=== PATIENT | female | born 1935 | race Caucasian/White ===

== ENCOUNTER 2018-02-15 06:31 | Observation (INO) | payer MEDICARE, OTHER ==
[2018-02-15] MEDS ORDERED: IODIXANOL 320 MG/ML 100 ML VIAL. (07:07)
[2018-02-15] MEDS ORDERED: LIDOCAINE 2% 20 ML VIAL. (07:07)
[2018-02-15 07:24] LABS: HEMATOCRIT 40.2 % (36.0-47.0); HEMOGLOBIN 13.6 g/dL (12.0-15.5); MEAN CORPUSCULAR HEMOGLOBIN 30 pg (25-35); MEAN CORPUSCULAR HGB CONC 34 g/dL (31-37); MEAN CORPUSCULAR VOLUME 89 fL (79-100); PLATELET COUNT 268 x10^3/uL (140-400); RED BLOOD COUNT 4.51 x10^6/uL (3.50-5.40); RED CELL DISTRIBUTION WIDTH 14.7 % (11.5-14.5); WHITE BLOOD COUNT 6.3 x10^3/uL (4.0-11.0)
[2018-02-15 07:32] LABS: ANION GAP 9 (6-14); BLOOD UREA NITROGEN 15 mg/dL (7-20); CALCIUM 9.4 mg/dL (8.5-10.1); CARBON DIOXIDE 27 mmol/L (21-32); CHLORIDE 94 mmol/L (98-107); CREATININE 1.3 mg/dL (0.6-1.0); GFR 39.2; GLUCOSE 119 mg/dL (70-99); POTASSIUM 3.7 mmol/L (3.5-5.1); SODIUM 130 mmol/L (136-145)
[2018-02-15] MEDS ORDERED: fentaNYL PF VIAL 100 MCG/2 ML VIAL (07:42)
[2018-02-15] MEDS ORDERED: MIDAZOLAM HCL/PF 2 MG/2 ML VIAL. (07:42)
[2018-02-15] MEDS ORDERED: HEPARIN for IV BOLUS 10,000 UNIT/10 ML VIAL. ×2 (07:45→08:53)
[2018-02-15 07:51] LABS: INR 0.9 (0.8-1.1); PROTHROMBIN TIME PATIENT 11.5 SEC (11.7-14.0)
[2018-02-15] MEDS: IODIXANOL 320 MG/ML 100 ML VIAL. IART (08:00)
[2018-02-15] MEDS: LIDOCAINE 2% 20 ML VIAL. IJ (08:00)
[2018-02-15] MEDS ORDERED: CONTRAST GIVEN. MC (08:00)
[2018-02-15] MEDS: fentaNYL PF VIAL 100 MCG/2 ML VIAL IV (08:00)
[2018-02-15] MEDS: MIDAZOLAM HCL/PF 2 MG/2 ML VIAL. IV (08:00)
[2018-02-15] MEDS: NITROGLYCERIN 200 MCG/2 ML SYRINGE FOR CATH/VASC LAB. IART (09:15)
[2018-02-15] MEDS: dilTIAZem INJ 10 MG, NITROGLYCERIN 4MG SYRINGE 4 MG, HEPARIN SODIUM 10,000 UNIT, VIPERS... INT CAT (09:15)
[2018-02-15] MEDS: HEPARIN for IV BOLUS 10,000 UNIT/10 ML VIAL. IV (09:15)
[2018-02-15] MEDS ORDERED: ACETAMINOPHEN 325 MG TABLET. PO ×2 (10:15→12:45)
[2018-02-15] MEDS ORDERED: fentaNYL PF VIAL 100 MCG/2 ML VIAL IV (10:45)
[2018-02-15] MEDS ORDERED: MIDAZOLAM HCL/PF 2 MG/2 ML VIAL. IV (10:45)
[2018-02-15] MEDS ORDERED: oxyCODONE/APAP 5/325 1 TAB TABLET PO (12:45)
[2018-02-15] MEDS: IV 1/2 NORMAL SALINE 1,000 ML IV ×2 (13:15→21:36)
[2018-02-15] MEDS: hydrALAZINE 20 MG/ML VIAL. IVP (13:17)
[2018-02-15] MEDS: ALPRAZolam 0.5 MG TABLET PO (21:28)
[2018-02-15] MEDS: AMITRIPTYLINE HCL 25 MG TABLET. PO ×2 (21:28→21:33)
[2018-02-16 05:18] LABS: ANION GAP 7 (6-14); BLOOD UREA NITROGEN 10 mg/dL (7-20); CALCIUM 8.1 mg/dL (8.5-10.1); CARBON DIOXIDE 27 mmol/L (21-32); CHLORIDE 96 mmol/L (98-107); CREATININE 0.9 mg/dL (0.6-1.0); GFR 59.9; GLUCOSE 116 mg/dL (70-99); SODIUM 130 mmol/L (136-145)
[2018-02-16 05:28] LABS: POTASSIUM 2.9 mmol/L (3.5-5.1)
[2018-02-16] MEDS: LEVOTHYROXINE 75 MCG TABLET PO (05:55)
[2018-02-16] MEDS: POTASSIUM CHLORIDE 20 MEQ TABLET.ER. PO ×2 (06:09→08:44)
[2018-02-16] MEDS: amLODIPine BESYLATE 5 MG TABLET PO (08:42)
[2018-02-16] MEDS: AMITRIPTYLINE HCL 25 MG TABLET. PO (08:42)
[2018-02-16] MEDS: CETIRIZINE HCL 10 MG TABLET. PO ×2 (08:42→08:52)
[2018-02-16] MEDS: POTASSIUM CHLORIDE 10 MEQ TABLET.ER. PO (08:43)
[2018-02-16] MEDS: TRIAMTERENE/HCTZ 37.5/25MG TABLET. PO (08:43)
[2018-02-16] MEDS: ALPRAZolam 0.5 MG TABLET PO (08:45)
[2018-02-16 09:36] LABS: MAGNESIUM 1.5 mg/dL (1.8-2.4)
[2018-02-16] MEDS: MAGNESIUM SULFATE 2GM 50 ML IV (11:33)
== END 2018-02-16 14:30 | disposition other institution (70) ==
LOC: CCL 06:31 → 2 NORTH 09:22
DX: I73.9 Peripheral vascular disease, unspecified (principal); E03.9 Hypothyroidism, unspecified; E87.6 Hypokalemia; F32.9 Major depressive disorder, single episode, unspecified; F41.9 Anxiety disorder, unspecified; Z88.2 Allergy status to sulfonamides
CPT/HCPCS: 36415; 37225; 80048; 83735; 85027; 85610; 93306; 96365; 96366; 96367; 96375; 99152; 99153; C1724; C1769; C1771; C1885; C1892; G0269; G0378; G0379; J0360; J1644; J2001; J2250; J3010; J3475; J3490; J7030

== ENCOUNTER → 2019-02-23 | Outpatient (CLI) | payer MEDICARE ==
[2018-03-02 10:45] VITALS: BP 147/72
[~2019-02-23] MED LIST: ALPR0.254 PO; ALPR0.5T6 PO; AMIT25TA PO; AMLO5TAB4 PO; CETI10TA16 PO; CETI10TA22 PO; DIPH25CA58 PO; FLUO40CR TP; LEVO75TA5 PO; MULT-245 PO; OMEG1CAP6 PO; PERP4TAB6 PO; POTA10TA12 PO; TRIA1TAB5 PO; VITA100020 PO
--- NOTE | 2019-02-23 11:54 | CARD ---
MR#: [id number] Date of Study: 02/23/2019 Ordering Physician: TAYLOR GONZALEZ, Referring Physician: TAYLOR GONZALEZ Tech: Karen Luna RDCS APPROVED REPORT EXAM: Two-dimensional and M-mode echocardiogram with Doppler and color Doppler. Other Information Quality : GoodHR: 79bpm Rhythm : NSR INDICATION Cardiomyopathy 2D DIMENSIONS RVDd2.2 (2.9-3.5cm)Left Atrium(2D)2.7 (1.6-4.0cm) IVSd1.2 (0.7-1.1cm)Aortic Root(2D)2.4 (2.0-3.7cm) LVDd3.2 (3.9-5.9cm)LVOT Diameter1.8 (1.8-2.4cm) PWd0.9 (0.7-1.1cm)LVDs2.4 (2.5-4.0cm) FS (%) 24.8 %SV20.2 ml M-Mode DIMENSIONS Left Atrium(MM)2.58 (2.5-4.0cm)Aortic Root2.76 (2.2-3.7cm) Aortic Valve AoV Peak Ky.152.5cm/sAoV VTI32.6cm AO Peak GR.9.3mmHgLVOT Peak Ky.123.9cm/s AO Mean GR.5mmHgAVA (VMAX)2.04cm2 NICOLASA (VTI)2.00cm2 Mitral Valve MV E Nbydliko05.0cm/sMV DECEL KNAH437lp MV A Nkvghkki236.9cm/sE/A Ratio0.6 Pulmonary Valve PV Peak Kbqkeofr79.5cm/s Tricuspid Valve TR P. Ctybncxh002ma/sRAP [id number] TR Peak Gr.72aeOuVIKJ40jiEt Pulmonary Vein S1 Cydqdsvl05.0cm/sD2 Mryrbcmj13.8cm/s PVa cuflzqpz71rasr LEFT VENTRICLE The left ventricle is normal size. Mild proximal septal thickening is noted. Left ventricle systolic function is normal. The Ejection Fraction is 50-55%. There is normal LV segmental wall motion. Transm itral Doppler flow pattern is Grade I-abnormal relaxation pattern. RIGHT VENTRICLE The right ventricle is normal size. There is normal right ventricular wall thickness. The right ventr icular systolic function is normal. ATRIA The left atrium size is normal. The right atrium size is normal. The interatrial septum is intact wit h no evidence for an atrial septal defect or patent foramen ovale as noted on 2-D or Doppler imaging. AORTIC VALVE The aortic valve is mildly calcified. The aortic valve is trileaflet. Doppler and Color Flow revealed no significant aortic regurgitation. There is no significant aortic valvular stenosis. MITRAL VALVE Mitral annular calcification is mild. There is no evidence of mitral valve prolapse. There is no mitr al valve stenosis. Doppler and Color-flow revealed mild mitral regurgitation. TRICUSPID VALVE The tricuspid valve is normal in structure and function. Doppler and Color Flow revealed trace tricus pid regurgitation. The PA pressure was estimated at 25 mmHg. There is no tricuspid valve prolapse or vegetation. There is no tricuspid valve stenosis. PULMONIC VALVE The pulmonary valve is normal in structure and function. Doppler and Color Flow revealed trace pulmon ic valvular regurgitation. There is no pulmonic valvular stenosis. GREAT VESSELS The aortic root is normal in size. The ascending aorta is normal in size. The IVC is normal in size a nd collapses >50% with inspiration. PERICARDIAL EFFUSION There is no evidence of significant pericardial effusion. Critical Notification Critical Value: No <Conclusion> The left ventricle is normal size. Left ventricle systolic function is normal. The Ejection Fraction is 50-55%. Mild proximal septal thickening is noted. There is no significant aortic valvular stenosis. Doppler and Color Flow revealed no significant aortic regurgitation. Doppler and Color-flow revealed mild mitral regurgitation. Doppler and Color Flow revealed trace tricuspid regurgitation. The PA pressure was estimated at 25 mmHg. Signed by : Brennen Armstrong MD Electronically Approved : 02/23/2019 11:53:50
--- NOTE | 2019-02-23 14:38 | RAD ---
DOPPLER CAROTID BILAT Clinical Indication: Peripheral arterial disease.. Procedure: Pulsed wave and color-flow duplex imaging was utilized to evaluate the extracranial carotid arteries. Comparison: None. Findings: RIGHT SIDE: Mild atherosclerotic plaque on lee-scale images. Distal CCA peak systolic velocity 56 cm/sec. ICA peak systolic velocity 110 cm/sec. The right ICA/CCA ratio is 2.0. Flow within the right vertebral artery and right ECA is directed antegrade. LEFT SIDE: Mild atherosclerotic plaque on lee-scale images. Distal CCA peak systolic velocity 80 cm/sec. ICA peak systolic velocity 118 cm/sec. The left ICA/CCA ratio is 1.5. Flow within the left vertebral artery and left ECA is directed antegrade. Carotid legend: CCA = common carotid artery ICA = internal carotid artery ECA = external carotid artery IMPRESSION: Less than 50 percent stenosis bilaterally. Electronically signed by: Sheldon Shabazz DO (02/23/2019 2:34 PM) [facility]
--- NOTE | 2019-02-23 14:43 | RAD ---
Indication: Peripheral arterial disease. TECHNIQUE: Grayscale, color Doppler and spectral waveform images of the bilateral lower extremity arteries COMPARISON: None FINDINGS: Right side: Biphasic waveforms in the [employer] with velocity of 215 cm/s suggesting mild stenosis. Biphasic waveforms in the profunda femoris artery with velocity of 124 cm/s. Biphasic waveform in the proximal SFA with velocity of 149 cm/s. Biphasic waveforms in the mid SFA with velocity of 90 cm/s. Biphasic waveforms in the distal SFA with velocity of 61 cm/s. Biphasic waveforms in the popliteal artery with velocity of 77 cm/s. Biphasic waveforms in the distal posterior tibial artery with velocity of 35 cm/s. Biphasic waveforms in the peroneal artery with velocity of 42 cm/s. Biphasic waveforms in the anterior tibial artery with velocity of 50 cm/s. Biphasic waveforms in the dorsalis pedis artery with velocity of 59 cm/s. Left side: Biphasic waveforms in the [employer] with velocity of 208 cm/s suggesting mild stenosis. Biphasic waveforms in the profunda femoris artery with velocity of 98 cm/s. Biphasic waveform in the proximal SFA with velocity of 164 cm/s. Biphasic waveforms in the mid SFA with velocity of 78 cm/s. Biphasic waveforms in the distal SFA with velocity of 84 cm/s. Biphasic waveforms in the popliteal artery with velocity of 48 cm/s. Biphasic waveforms in the distal posterior tibial artery with velocity of 65 cm/s. Biphasic waveforms in the peroneal artery with velocity of 50 cm/s. Biphasic waveforms in the anterior tibial artery with velocity of 32 cm/s. Biphasic waveforms in the dorsalis pedis artery with velocity of 30 cm/s. IMPRESSION: Moderate diffuse bilateral atherosclerotic disease in the lower extremity arteries without significantly elevated velocity to suggest focal stenosis. Electronically signed by: Sheldon Shabazz DO (02/23/2019 2:41 PM) [facility]
== END | disposition home or self-care (01) ==
LOC: ECHO 10:44
PROVIDERS: ATTEND Internal Medicine Cardiovascular Disease
DX: I08.0 Rheumatic disorders of both mitral and aortic valves (principal); I65.23 Occlusion and stenosis of bilateral carotid arteries; I70.203 Unspecified atherosclerosis of native arteries of extremities, bilateral legs; I42.9 Cardiomyopathy, unspecified
CPT/HCPCS: 93306; 93880; 93925

== ENCOUNTER → 2019-04-05 | Outpatient (CLI) | payer MEDICARE, OTHER ==
[2018-03-02 10:45] VITALS: BP 147/72
--- NOTE | 2019-04-05 13:01 | RAD ---
MR#: [id number] Date of Study: 04/05/2019 Ordering Physician: TAYLOR GONZALEZ, Referring Physician: TAYLOR GONZALEZ, Tech: Rubén Valverde MBA, RDMS, RVT, RDCS, RTR APPROVED REPORT Patient Location : OUT-PATIENT Indications Lower Extremity Pain : Bilateral Findings The bilateral greater and lesser saphenous veins do not show any evidence of reflux. Grayscale images do not show any obvious evidence of thrombus. The right great saphenous vein measures 3.3 mm in the left great saphenous vein measures 4 mm. Critical Notification Critical Value: No <Conclusion> No evidence of reflux in the bilateral lower extremities Signed by : Giovani Vega, Electronically Approved : 04/05/2019 13:01:44
== END | disposition home or self-care (01) ==
LOC: US 11:49
PROVIDERS: ATTEND Internal Medicine Cardiovascular Disease
DX: M79.604 Pain in right leg (principal); M79.605 Pain in left leg
CPT/HCPCS: 93970

== ENCOUNTER → 2020-05-18 | Outpatient (CLI) | payer MEDICARE, OTHER ==
[2018-03-02 10:45] VITALS: BP 147/72
[~2020-05-18] MED LIST changes: -CETI10TA22 PO; +CETI10TA74 PO; +POTASSIUM CHLO10 ME1 PO
--- NOTE | 2020-05-18 14:09 | KCIC ---
EXAMINATION: Magnetic resonance imaging (MRI) of the brain and brainstem without contrast 05/18/2020 1:15 PM HISTORY: Memory changes. Acute dizziness 5 days ago. TECHNIQUE: Multiplanar multi-weighted MRI of the brain and brainstem was performed without intravenous contrast using the general brain protocol. COMPARISON: None available. FINDINGS: The scalp and calvarium are normal. The superior sagittal sinus demonstrates normal venous flow. The corpus callosum is normal in shape and signal intensity. The posterior fossa is unremarkable. The pituitary and sella are normal. The brainstem and craniocervical junction are unremarkable. Diffusion weighted images reveal no hyperintensities to suggest acute cerebral infarction. The susceptibility weighted sequences reveal no evidence of acute or chronic hemorrhage. Ventricles, sulci and basal cisterns are prominent compatible with mild generalized cerebral volume loss. Senescent calcifications suspected within the basal ganglia bilaterally. There is a moderate-sized mucus retention cyst in the right sphenoid sinus measuring 1.3 cm. The visualized portions of the mastoids are unremarkable. The orbits appear normal with exception of bilateral lens replacement. Normal flow voids are demonstrated in the carotid arteries and basilar artery. IMPRESSION: 1. No evidence for acute or subacute ischemia. 2. There are T2/FLAIR signal hyperintense foci in the periventricular and subcortical white matter with areas of confluence most suggestive of moderate chronic small vessel ischemic changes. Mild generalized cerebral volume loss. 3. Moderate-sized mucus retention cyst identified in the right sphenoid sinus. Electronically signed by: Karli Gutierrez MD (05/18/2020 2:06 PM) [facility]
== END ==
LOC: KCIC MRI 12:44
PROVIDERS: ATTEND Physician Assistant Medical
DX: R41.3 Other amnesia (principal)
CPT/HCPCS: 70551

== ENCOUNTER → 2020-10-15 | Outpatient (CLI) | payer MEDICARE, OTHER ==
[2018-03-02 10:45] VITALS: BP 147/72
--- NOTE | 2020-10-15 16:45 | CARD ---
MR#: [id number] Date of Study: 10/15/2020 Ordering Physician: ROSANNA CHILDS, Referring Physician: ROSANNA CHILDS, Tech: Graciela Simon [facility] APPROVED REPORT EXAM: Two-dimensional and M-mode echocardiogram with Doppler and color Doppler. Other Information Quality : AverageHR: 69bpm Rhythm : NSR INDICATION Hypertension/HCVD RISK FACTORS Hypertension 2D DIMENSIONS RVDd2.6 (2.9-3.5cm)Left Atrium(2D)2.8 (1.6-4.0cm) IVSd1.2 (0.7-1.1cm)Aortic Root(2D)2.7 (2.0-3.7cm) LVDd3.1 (3.9-5.9cm)LVOT Diameter1.9 (1.8-2.4cm) PWd1.1 (0.7-1.1cm)LVDs1.9 (2.5-4.0cm) FS (%) 39.3 %SV27.2 ml Aortic Valve AoV Peak Ky.159.2cm/sAoV VTI37.7cm AO Peak GR.10.1mmHgLVOT Peak Ky.73.9cm/s AO Mean GR.6mmHgAVA (VMAX)1.35cm2 Mitral Valve MV E Tphitwis31.5cm/sMV DECEL LKDQ273pd MV A [place]ukwour634.0cm/sE/A Ratio0.7 Pulmonary Valve PV Peak Iyswxozz07.9cm/s Tricuspid Valve TR P. Syixojlx247fr/sTR Peak Gr.27mmHg Pulmonary Vein S1 Kypqpmhh57.9cm/sD2 Masjujnw55.3cm/s PVa xrrnkkxw545lesa LEFT VENTRICLE The left ventricle is normal size. There is mild concentric left ventricular hypertrophy. The left ve ntricular systolic function is normal and the ejection fraction is within normal range. Estimated ej ection fraction 50-55%. There is normal LV segmental wall motion. Transmitral Doppler flow pattern is Grade I-abnormal relaxation pattern. RIGHT VENTRICLE The right ventricle is normal size. There is normal right ventricular wall thickness. The right ventr icular systolic function is normal. ATRIA The left atrium size is normal. The right atrium size is normal. The interatrial septum is intact wit h no evidence for an atrial septal defect or patent foramen ovale as noted on 2-D or Doppler imaging. AORTIC VALVE The aortic valve is calcified but opens well. Doppler and Color Flow revealed no significant aortic r egurgitation. There is no significant aortic valvular stenosis. MITRAL VALVE The mitral valve is thickened but opens well. Mitral annular calcification is mild. There is no evide nce of mitral valve prolapse. There is no mitral valve stenosis. Doppler and Color Flow revealed trac e mitral valve regurgitation. TRICUSPID VALVE The tricuspid valve is normal in structure and function. Doppler and Color Flow revealed mild tricusp id regurgitation. Estimated PAP 30 mmHg. There is no tricuspid valve stenosis. PULMONIC VALVE The pulmonary valve is normal in structure and function. Doppler and Color Flow revealed mild pulmoni c valvular regurgitation. GREAT VESSELS The aortic root is normal in size. The ascending aorta is normal in size. The IVC is normal in size a nd collapses >50% with inspiration. PERICARDIAL EFFUSION There is no evidence of significant pericardial effusion. Critical Notification Critical Value: No <Conclusion> The left ventricle is normal size. The left ventricular systolic function is normal and the ejection fraction is within normal range. Estimated ejection fraction 50-55%. There is mild concentric left ventricular hypertrophy. Doppler and Color Flow revealed no significant aortic regurgitation. There is no significant aortic valvular stenosis. Doppler and Color Flow revealed trace mitral valve regurgitation. Doppler and Color Flow revealed mild tricuspid regurgitation. Estimated PAP 30 mmHg. Signed by : Brennen Armstrong MD Electronically Approved : 10/15/2020 16:45:18
== END ==
LOC: ECHO 10:54
PROVIDERS: ATTEND Physician Assistant Medical
DX: I08.8 Other rheumatic multiple valve diseases (principal)
CPT/HCPCS: 93306

== ENCOUNTER 2021-04-12 07:00 | Outpatient (CLI) | payer MEDICARE, OTHER ==
[~2021-04-12] VITALS: Ht 149.9 cm; Wt 46.8 kg
[2021-04-12] VITALS (12 sets, daily range): BP systolic 109–144; BP diastolic 46–70
[~2021-04-12 07:00] MED LIST changes: +ALBU1.25 NEB; +ASPI-886 PO; +FAMO-63 PO; +LEVO50TA5 PO; +METO25TA4 PO; +ROSU10TA26 PO; +VENTOLIN HFA18 GM INH
[2021-04-12 07:34] LABS: HEMATOCRIT 37.3 % (36.0-47.0); HEMOGLOBIN 12.5 g/dL (12.0-15.5); RED BLOOD COUNT 4.21 x10^6/uL (3.50-5.40); WHITE BLOOD COUNT 6.5 x10^3/uL (4.0-11.0)
[2021-04-12 07:41] LABS: CALCIUM 9.1 mg/dL (8.5-10.1); CREATININE 1.4 mg/dL (0.6-1.0); GFR 35.7; POTASSIUM 4.1 mmol/L (3.5-5.1)
[2021-04-12] MEDS ORDERED: LIDOCAINE 1% Multi-Dose 20 ML VIAL. ONE (07:41)
[2021-04-12] MEDS ORDERED: IODIXANOL 320 MG/ML 100 ML VIAL. ONE (07:42)
[2021-04-12] MEDS ORDERED: POTA10TA6 PO (07:51)
[2021-04-12] MEDS ORDERED: PERP4TAB6 PO (07:51)
[2021-04-12] MEDS ORDERED: FURO20TA3 PO (07:51)
[2021-04-12] MEDS ORDERED: MAGN400T5 PO (07:54)
[2021-04-12] MEDS ORDERED: fentaNYL PF VIAL 100 MCG/2 ML VIAL ONE (08:13)
[2021-04-12] MEDS ORDERED: MIDAZOLAM HCL/PF 2 MG/2 ML VIAL. ONE (08:13)
[2021-04-12] MEDS ORDERED: BIVALIRUDIN 250 MG VIAL. IV ONE ×2 (08:53→09:00)
[2021-04-12] MEDS ORDERED: MIDAZOLAM HCL/PF 2 MG/2 ML VIAL. IV ONE (09:00)
[2021-04-12] MEDS ORDERED: LIDOCAINE 1% Multi-Dose 20 ML VIAL. INJ ONE (09:00)
[2021-04-12] MEDS ORDERED: fentaNYL PF VIAL 100 MCG/2 ML VIAL IV ONE (09:00)
[2021-04-12] MEDS ORDERED: IODIXANOL 320 MG/ML 100 ML VIAL. IART ONE (09:00)
[2021-04-12] MEDS ORDERED: CONTRAST GIVEN. MC PRN (09:15)
[2021-04-12] MEDS ORDERED: ASPIRIN 325 MG TABLET ONE (09:18)
[2021-04-12] MEDS ORDERED: CLOPIDOGREL BISULFATE 75 MG TABLET ONE (09:18)
[2021-04-12] MEDS ORDERED: CLOPIDOGREL BISULFATE 75 MG TABLET PO ONE (09:30)
[2021-04-12] MEDS ORDERED: ASPIRIN 325 MG TABLET PO ONE (09:30)
--- NOTE | 2021-04-12 09:36 | PDOC ---
MODERATE SEDATION ASSESSMENT RISKS/ALTERNATIVES Risks/Alternatives Risks and alternatives of this type of sedation and procedure discussed with: RISK/ALTERNATIVES: Patient H & P ON CHART H & P H & P on chart and reviewed for co-morbid conditions and appropriate labs. H&P ON CHART: Yes STATUS PREG STATUS ASSESSED: N/A MEDS/ALLERGIES REVIEWED Meds/Allergies Reviewed Medications and Allergies including time and route of recently administered narcotics and sedatives. MEDS/ALLERGIES REVIEWED: Yes ASA RATING ASA RATING: III AIRWAY ASSESSMENT Airway Assessment Airway patency, oral function limitations, presence of caps, crowns, dentures, partials, and ability to extend neck assessed. AIRWAY ASSESSMENT: Yes MALLAMPATI SCORE MALLAMPATI SCORE: II PRE-SEDATION ASSESSMENT PRE-SEDATION ASSESSMENT: Yes TAYLOR GONZALEZ MD Apr 12, 2021 09:36
[2021-04-12] MEDS ORDERED: IV 1/2 NORMAL SALINE 1,000 ML IV SCH (09:45)
[2021-04-12] MEDS ORDERED: ACETAMINOPHEN 325 MG TABLET. PO PRN (09:45)
--- NOTE | 2021-04-12 10:13 | CARD ---
MR#: [id number] Date of Study: 04/12/2021 Ordering Physician: TAYLOR YANES, Referring Physician: TAYLOR YANES, Tech: RT Alireza(R) APPROVED REPORT Technologist: RT Alireza(R) Nurse: Nargis Nguyen RN Procedure(s) performed: 1. Right and left heart catheterization and selective coronary angiography 2. Instantaneous wave free ratio (IFR) measurement to left anterior descending artery stenosis 3. Successful PCI/drug-eluting stent placement to the left circumflex artery Sedation Time: 75 Minutes Dose: 33 Gycm2 Contrast: 115 mL Visipaque 320 Fluoro Time: 10.7 Minutes HISTORY : previous CHF. INDICATION The indication(s) include : Refractory and progressive dyspnea on exertion concerning for unstable an wero. [facility] Clinical Frailty Scale [facility] Clinical Frailty Scale: Moderately Frail Heart Failure Heart Failure: Yes If Yes, Newly Diagnosed: No If Yes, HF Type: Diastolic If Yes, NYHA Class: Class II CASE TECHNIQUE IV conscious sedation was used throughout procedure with appropriate monitoring and was performed in the presence of a registered nurse who was an independent trained observer other than the physician p erforming the procedure. During this case, Fluoroscopy and low osmolar contrast were used for imaging . Specimen(s) Removed: No Estimated Blood loss: 20 cc's. PROCEDURE NARRATIVE After explaining the risks, benefits and alternative options, informed consent was obtained from adolph ent. Patient was brought to the cardiac [facility] and her right groin was prepped and draped in the us ual fashion. 20 cc of 2% lidocaine was infiltrated into the skin and subcutaneous tissues for local a nesthesia. Arterial and venous accesses were obtained in the right common femoral artery and vein res pectively and 6 and 8 [place] sheaths inserted. A 7.5 [place] catheter was then advanced unde r fluoroscopy guidance and intracardiac pressures, oxygen saturations and cardiac output by Ck meth od measured. Subsequently, 6 [place] JL4 6 [place] JR4 catheters were used to perform selective angiogr aphy of the left and right coronary arteries. LVEDP and transaortic gradients were measured. Since pa tient was found to have angiographically borderline significant stenosis involving the left anterior descending artery, a decision was made to perform physiologic assessment using instantaneous wave mary beth e ratio (IFR). The left main coronary artery was engaged with a 6 [place] XB 3.5 guide catheter and th e stenosis in the mid segment of the left antidescending artery was crossed with a Hstry pr essure wire. iFR measurement was made that came back physiologically insignificant at 0.94. FINDINGS A. RIGHT HEART CATHETERIZATION 1. Intracardiac pressures: Mean right atrial pressure 1 mmHg, right ventricular pressure 20/2 mmHg, p ulmonary artery pressure 26/7 mmHg with a mean pulmonary artery pressure of 10 mmHg and a mean pulmon yang capillary wedge pressure of 3 mmHg. No evidence of pulmonary hypertension. 2. Oxygen saturations: Right atrium 65.5%, pulmonary artery 67.5%, femoral arterial sheath 97.9%. No evidence of intracardiac shunt. 3. Cardiac output by Ck method 2.4 L/min. B. LEFT HEART CATHETERIZATION 1. Hemodynamics: Left ventricular end-diastolic pressure 20 mmHg. No pullback gradient across the aor tic valve. 2. Coronary angiography: a. The left main coronary artery arose from the left sinus of Valsalva, gave rise to the left anterio r descending and left circumflex arteries and did not show any significant stenosis. b. The left anterior descending artery showed 50% stenosis in the midsegment that was physiologically insignificant based on IFR measurement of 0.94. c. The left circumflex artery showed 80% stenosis in the midsegment. d. The right coronary artery was a large and dominant vessel arising from the right sinus of Valsalva that showed 30% stenosis in the proximal to mid segment and 30% stenosis in the distal segment. INTERVENTION Left main coronary artery was engaged with a 6 [place] XB 3.5 guide catheter. The stenosis in the mid segment of the left circumflex artery was crossed with a 0.014 inch MOLOME guidewire. This wa s predilated with a 2.5 x 15 mm Euphora balloon following which this was successfully treated with a 2.75 x 16 mm [employer] Promus Elite drug-eluting stent. Follow-up angiography showed resoluti on of the stenosis to 0% with CARMEN-3 distal flow. Patient tolerated the procedure well. Hemostasis wa s achieved using Mynx closure device and manual compression. There were no immediate complications. CARMEN Flow CARMEN Flow (Pre-Intervention): CARMEN-2 CARMEN Flow (Post-Intervention): CARMEN-3 Conclusion 1. Two-vessel coronary artery disease. 80% stenosis involving the left circumflex artery. 50% stenosi s involving the left anterior ascending artery that was physiologically insignificant based on IFR me asurement of 0.94. 2. Successful PCI/drug-eluting stent placement to the left circumflex artery. 3. No pulmonary hypertension. 4. No evidence of intracardiac shunt. Recommendations 1. Aspirin 325 mg daily for 1 month followed by 81 mg daily 2. Plavix 75 mg daily 3. Cardiovascular risk factor modification Signed by : Taylor Yanes, Electronically Approved : 04/12/2021 10:12:34
[2021-04-12] MEDS ORDERED: CLOP75TA PO (10:21)
--- NOTE | 2021-04-12 13:28 | NUR ---
pt ambulated and tolerated PO. PIV dc'd. Discharge instructions reviewed with patient and family. Plavix prescription called to [facility] in [place]. Pt home with family
[2021-04-13] MEDS ORDERED: ASPIRIN ENTERIC COATED 325 MG TABLET.DR. PO SCH (08:00)
[2021-04-13] MEDS ORDERED: CLOPIDOGREL BISULFATE 75 MG TABLET PO SCH (08:00)
== END 2021-04-12 13:32 | disposition home or self-care (01) ==
LOC: CCL 07:00
PROVIDERS: ATTEND Internal Medicine Cardiovascular Disease
DX: R06.00 Dyspnea, unspecified (principal); I25.10 Atherosclerotic heart disease of native coronary artery without angina pectoris; I10 Essential (primary) hypertension; E78.00 Pure hypercholesterolemia, unspecified; F41.9 Anxiety disorder, unspecified; F32.9 Major depressive disorder, single episode, unspecified; E03.9 Hypothyroidism, unspecified; Z85.828 Personal history of other malignant neoplasm of skin; I73.9 Peripheral vascular disease, unspecified; M19.90 Unspecified osteoarthritis, unspecified site; Z79.899 Other long term (current) drug therapy; Z90.710 Acquired absence of both cervix and uterus; Z98.41 Cataract extraction status, right eye; Z98.42 Cataract extraction status, left eye; Z98.890 Other specified postprocedural states
CPT/HCPCS: 36415; 80048; 85027; 93460; 93571; 99152; 99153; C1725; C1760; C1769; C1773; C1874; C1887; C1894; C9600; J0583; J1644; J2250; J3010; J3490; Q9967; 92928; G0269